=== PATIENT | female | born 1985 | race African-American/Black ===

== ENCOUNTER 2017-03-04 20:06 | Emergency (ER) | payer OTHER ==
[~2017-03-04] VITALS: Ht 165.1 cm; Wt 142.4 kg
[2017-03-04 20:12] VITALS: BP 136/100
--- NOTE | 2017-03-04 20:22 | NUR ---
PT BIBSELF, AMBULATORY TO ER BED 3 C/O LEFT EAR PAIN X 2 DAYS. PT DENIES TRAUMA. PT AOX4 RR EVEN AND UNLABORED. NO SOB NOTED. NAD NOTED. -NVD AT THIS TIME. PT WAITING FOR MD MENDEZ.
== END 2017-03-04 21:19 | disposition home or self-care (01) ==
LOC: ER 20:06
DX: H60.92 Unspecified otitis externa, left ear (principal); F41.9 Anxiety disorder, unspecified; F60.3 Borderline personality disorder
CPT/HCPCS: A4606; Z7610

== ENCOUNTER 2017-03-28 18:36 | Emergency (ER) | payer OTHER ==
[~2017-03-28] VITALS: Ht 165.1 cm; Wt 142.4 kg
[2017-03-28 18:43] VITALS: BP 177/108
== END 2017-03-28 19:44 | disposition home or self-care (01) ==
LOC: ER 18:37
DX: H92.01 Otalgia, right ear (principal); B99.8 Other infectious disease; F32.9 Major depressive disorder, single episode, unspecified; F41.9 Anxiety disorder, unspecified; F90.9 Attention-deficit hyperactivity disorder, unspecified type
CPT/HCPCS: 82962; 99283; A4606; Z7610

== ENCOUNTER 2017-05-23 14:28 | Emergency (ER) | payer SELFPAY ==
--- NOTE | 2017-05-23 14:40 | NUR ---
CALLED PT FOR TRIAGE, NO RESPONSE, PT PHYSICALLY NOT IN WAITING ROOM
--- NOTE | 2017-05-23 14:55 | NUR ---
CALLED PT FOR TRIAGE, NO RESPONSE, PT PHYSICALLY NOT IN WAITING ROOM
== END 2017-05-23 14:56 | disposition left against medical advice (07) ==
LOC: ER 14:32
DX: Z53.21 Procedure and treatment not carried out due to patient leaving prior to being seen by health care provider (principal)

== ENCOUNTER 2018-08-05 02:53 | Emergency (ER) | payer OTHER ==
[~2018-08-05] VITALS: Ht 165.1 cm; Wt 118.9 kg
[2018-08-05 02:57] VITALS: BP 152/94
== END 2018-08-05 03:30 | disposition home or self-care (01) ==
LOC: ER 02:53
DX: L03.113 Cellulitis of right upper limb (principal); F32.9 Major depressive disorder, single episode, unspecified; F41.9 Anxiety disorder, unspecified; F90.9 Attention-deficit hyperactivity disorder, unspecified type; F60.3 Borderline personality disorder; F17.200 Nicotine dependence, unspecified, uncomplicated; Z98.890 Other specified postprocedural states; Z90.89 Acquired absence of other organs
CPT/HCPCS: A4606; Z7610

== ENCOUNTER 2019-03-23 21:22 | Inpatient (IN) | payer OTHER ==
[~2019-03-23] VITALS: Ht 165.1 cm; Wt 98.9 kg
--- NOTE | 2019-03-23 21:55 | NUR ---
BIBFROM HOME BY MOTHER. PT IS SLEEPING AND DIFFICULT TO ARROUSE. BREATHING OBSERVED EVEN AND UNLABORED. C/O R BACK PAIN WHEN BREATHING SINCE TUESDAY 07/31 [place] PAIN. MOTHER REPORTS THAT SHE HAD HX OF HAVING FLUID IN HER LUNG. PT IS CURRENTLY ON DETOX TX FROM METH AND HEROIN. TO ER BED 10. MOTHER AT BEDSIDE. AWAITING MD FOR VANESSA
--- NOTE | 2019-03-23 22:44 | NUR ---
MARY (MOTHER) - [phone] CALL FOR ANY UPDATE OR INFORMATION
--- NOTE | 2019-03-23 22:51 | NUR ---
EKG AND XRAY AT BEDSIDE
[2019-03-23] MEDS ORDERED: IV NS 0.9% 1,000 ML BAG IV ONE (23:00)
[2019-03-23 23:52] LABS: BASOPHILS % (AUTO) 0.3 % (0.0-2.0); EOSINOPHILS % (AUTO) 0.1 % (0.0-6.0); HEMATOCRIT 32 % (33-45); LYMPHOCYTES # (AUTO) 1.3 /CMM (0.8-4.8); LYMPHOCYTES % (AUTO) 8.4 % (20.0-44.0); MEAN CORPUSCULAR HGB CONC 34 g/dl (31.0-36.0); MEAN CORPUSCULAR VOLUME 86 fL (82-100); MONOCYTES # (AUTO) 0.7 /CMM (0.1-1.30); MONOCYTES % (AUTO) 4.5 % (2.0-12.0); NEUTROPHILS # (AUTO) 13.5 /CMM (1.8-8.9); NEUTROPHILS % (AUTO) 86.7 % (43.0-81.0); PLATELET COUNT (AUTO) 229 /CMM (150-450); RED BLOOD CELL COUNT(AUTO) 3.76 MIL/uL (4.0-5.2); WHITE BLOOD COUNT (AUTO) 15.6 K/uL (4.3-11.0)
[2019-03-24 00:01] LABS: CALCIUM, SERUM 8.6 mg/dL (8.5-10.1); CARBON DIOXIDE 24 mmol/L (21-32); CHLORIDE 98 mmol/L (98-107); CREATININE 0.5 mg/dL (0.6-1.3); GLUCOSE 108 mg/dL (74-106); POTASSIUM 3.2 mmol/L (3.5-5.1); SODIUM SERUM 133 mmol/L (136-145); UREA NITROGEN, BLOOD 4 mg/dL (7-18)
[2019-03-24] MEDS ORDERED: MORPHINE SULFATE INJ 2 MG/ML DISP.SYRIN ONE ×2 (00:12→01:38)
[2019-03-24 00:14] LABS: B-TYPE NATRIURETIC PEPTIDE 623 PG/ML (0-125)
[2019-03-24 00:16] LABS: D-DIMER 1.57 mg/L(FEU (0.17-0.50)
[2019-03-24] MEDS ORDERED: MORPHINE SULFATE INJ 2 MG/ML DISP.SYRIN IV ONE ×2 (00:30→01:30)
--- NOTE | 2019-03-24 00:43 | NUR ---
MOTHER CALLED TO CHECK ON HER DAUGHTER.
[2019-03-24] MEDS ORDERED: FUROSEMIDE 40 MG/4 ML VIAL IV ONE (01:30)
[2019-03-24] MEDS ORDERED: FUROSEMIDE 40 MG/4 ML VIAL ONE (01:38)
--- NOTE | 2019-03-24 05:04 | NUR ---
AT BEDSIDE FOR US GUIDED IV.
[2019-03-24] MEDS ORDERED: POTASSIUM CHLORIDE 20 MEQ POWDER PACKET PO ONE (06:30)
[2019-03-24] MEDS ORDERED: POTASSIUM CHLORIDE 20 MEQ TAB.PRT.SR PO ONE (06:33)
[2019-03-24] MEDS ORDERED: IBUPROFEN 600 MG TABLET PO ONE ×2 (06:37→07:00)
--- NOTE | 2019-03-24 07:38 | NUR ---
Linsey nguyễn in ED - 03/24/19 at 0746 by TROY PT ASSESSED ON BED AA0X4, NOT IN RESPIRATORY DISTRESS, KEPT RESTED AND COMFORTABLE, WILL CONTINUE TO MONITOR. AWAITING PICC LINE NURSE.
--- NOTE | 2019-03-24 07:38 | NUR ---
PT ASSESSED ON BED AA0X1, APPEARS DRAWSY, NOT IN RESPIRATORY DISTRESS, KEPT RESTED AND COMFORTABLE, WILL CONTINUE TO MONITOR. AWAITING PICC LINE NURSE.
--- NOTE | 2019-03-24 07:50 | NUR ---
ER PHLEB AT BEDSIDE FOR REPEAT TROPONIN.
--- NOTE | 2019-03-24 08:39 | NUR ---
PT REFUSED BEDPAN AND OPTED TO GO TO RESTROOM.
--- NOTE | 2019-03-24 09:00 | NUR ---
CALLED HOUSE SUP TO FOLLOW UP PICC LINE NURSE. SAID ETA 1HOUR.
--- NOTE | 2019-03-24 09:58 | NUR ---
PICC LINE NURSE AT BEDSIDE.
--- NOTE | 2019-03-24 10:10 | NUR ---
MID LINE AT R UPPER ARM.
--- NOTE | 2019-03-24 10:40 | NUR ---
PT IS WHEELED TO CT SCAN VIA [facility].
[2019-03-24] MEDS ORDERED: IOHEXOL-350 100 ML VIAL IV ONE ×2 (10:43→10:44)
[2019-03-24] MEDS ORDERED: IV NS 0.9% 250 ML IV ONE (10:44)
[2019-03-24] MEDS ORDERED: CT SWABBABLE VALVE TRANS SET 1 EA INFUS.SET MC ONE (10:44)
--- NOTE | 2019-03-24 10:55 | NUR ---
PT IS BACK FROM THE CT SCAN.
[2019-03-24] MEDS ORDERED: ALPR0.5T PO (11:20)
[2019-03-24] MEDS ORDERED: LEVOFLOXACIN 750 MG /D5W 150ML PIGGYBACK IV ONE (11:30)
[2019-03-24] MEDS ORDERED: VANCOMYCIN 1 GM in IV D5W 250 ML IV ONE (11:30)
[2019-03-24] MEDS ORDERED: VANCOMYCIN 1 GM VIAL ONE (11:41)
[2019-03-24] MEDS ORDERED: LEVOFLOXACIN 750 MG /D5W 150ML 150 ML IV ONE (11:42)
--- NOTE | 2019-03-24 12:55 | NUR ---
MS 306-1
--- NOTE | 2019-03-24 13:10 | NUR ---
REPORT GIVEN TO SERENE ROCK FOR JOYCE.
--- NOTE | 2019-03-24 13:35 | NUR ---
CATALOGUE CLERK NOTES PT ARRIVED ON TO UNIT AT 1335 FROM ER. PT REFUSED SKIN CHECK. ALL PATIENT BELONGINGS CHECKED AND DOCUMENTED. PER ER PTS MOTHER TOOK ALL BELONGINGS EXCEPT FOR THE CLOTHING THE PATIENT IS WEARING HOME. PT HAS RIGHT FOOT IV, AND RIGHT UPPER ARM MIDLINE, BOTH INTACT. PT ORIENTED TO THE USE OF THE CALL LIGHT. SAFETY PRECAUTIONS IN PLACE, BED IN LOWEST LOCKED POSITION, X2 SIDE RAILS UP AND CALL LIGHT WITHIN REACH. WILL CONTINUE TO MONITOR.
[2019-03-24 14:00] VITALS: BP 121/79
[2019-03-24] MEDS ORDERED: MAG HYDROX/AL HYDROX/SIMETH 30 ML UDC PO PRN (14:30)
[2019-03-24] MEDS ORDERED: MAGNESIUM HYDROXIDE 30 ML UDC PO PRN (14:30)
[2019-03-24] MEDS ORDERED: ONDANSETRON HCL/PF 4 MG/2 ML VIAL IVP PRN (14:30)
[2019-03-24 14:49] LABS: BILIRUBIN,DIRECT 0.2 mg/dL (0.0-0.2); BILIRUBIN,TOTAL 0.5 mg/dL (0.2-1.0)
[2019-03-24] MEDS ORDERED: FEE PK DOSING 1 MIN EA MC ONE (15:02)
[2019-03-24] MEDS: IV NS 0.9% 1,000 ML IV PRN (15:14)
--- NOTE | 2019-03-24 15:30 | NUR ---
RN NOTES INFORMED MAGNETOMETER OPERATOR TRETIAK OF PATIENTS PAST USE OF "HEROIN AND METH". MAGNETOMETER OPERATOR ORDERED URINE TOXIC SCREEN AND PRN ATIVAN 1MG PO Q6H PRN. WILL CARRY OUT ORDERED.
[2019-03-24] MEDS: RIVAROXABAN 15 MG TABLET PO SCH (16:28)
[2019-03-24] MEDS: LORAZEPAM 1 MG TABLET PO PRN (16:28)
[2019-03-24] MEDS: CEFTRIAXONE 1 G in IV D5W 50 ML IV SCH ×2 (17:00→19:11)
[2019-03-24] MEDS: VANCOMYCIN 1.25 GM in IV D5W 500 ML IV SCH (17:13)
[2019-03-24] MEDS: ACETAMINOPHEN 325 MG TABLET PO PRN (17:59)
--- NOTE | 2019-03-24 19:10 | NUR ---
MS RN NOTES RECEIVED PT IN BED AWAKE AND ABLE TO MAKE NEEDS KNOWN. PT A/O X3. RESPIRATIONS EVEN AND UNLABORED WITH NO S/S OF ACUTE DISTRESS OR SOB NOTED. PT WITH RIGHT UPPER ARM MIDLINE PATENT AND INTACT RUNNING NS@75ML/HR. PT ALSO WITH RIGHT FOOT IV PATENT AND INTACT. SAFETY MEASURES IN PLACE WITH BED IN LOWEST LOCKED POSITION WITH SIDE RAILS UP X2. CALL LIGHT WITHIN REACH. WILL CONTINUE TO MONITOR.
--- NOTE | 2019-03-24 19:36 | NUR ---
RN CLOSING NOTES PT AWAKE AND ALERT. PT COMPLAINING OF PAIN, PER PATIENTS HISTORY ONLY ABLE TO GIVE PRN TYLENOL. PT HAS RIGHT UPPER ARM MIDLINE, AND RIGHT FOOT IV, BOTH INTACT AND PATENT. INFORMED NIGHT NURSE THAT URINE SAMPLE STILL NEEDED. SAFETY PRECAUTIONS IN PLACE, BED IN LOWEST LOCKED POSITION, X2 SIDE RAILS UP AND CALL LIGHT WITHIN REACH WILL ENDORSE TO SURG TECH NURSE FOR CONTINUITY OF CARE.
[2019-03-24 20:00] VITALS: BP 150/73
[2019-03-25] MEDS: ACETAMINOPHEN 325 MG TABLET PO PRN ×2 (01:26→09:36)
[2019-03-25] MEDS: VANCOMYCIN 1.25 GM in IV D5W 500 ML IV SCH ×2 (02:00→10:50)
[2019-03-25 06:50] LABS: BASOPHILS # (AUTO) 0.1 /CMM (0.0-0.2); BASOPHILS % (AUTO) 0.5 % (0.0-2.0); EOSINOPHILS % (AUTO) 0.2 % (0.0-6.0); HEMATOCRIT 33 % (33-45); HEMOGLOBIN 11.1 g/dL (11.5-14.8); LYMPHOCYTES # (AUTO) 1.6 /CMM (0.8-4.8); LYMPHOCYTES % (AUTO) 14.7 % (20.0-44.0); MEAN CORPUSCULAR HGB CONC 34 g/dl (31.0-36.0); MEAN CORPUSCULAR VOLUME 85 fL (82-100); MONOCYTES # (AUTO) 1.2 /CMM (0.1-1.30); MONOCYTES % (AUTO) 11.5 % (2.0-12.0); NEUTROPHILS # (AUTO) 7.9 /CMM (1.8-8.9); NEUTROPHILS % (AUTO) 73.1 % (43.0-81.0); PLATELET COUNT (AUTO) 236 /CMM (150-450); WHITE BLOOD COUNT (AUTO) 10.7 K/uL (4.3-11.0)
--- NOTE | 2019-03-25 06:54 | NUR ---
MS RN NOTES PT IN BED AWAKE AND ABLE TO MAKE NEEDS KNOWN. PT A/O X3. RESPIRATIONS EVEN AND UNLABORED WITH NO S/S OF ACUTE DISTRESS OR SOB NOTED THROUGHOUT SHIFT. PT WITH RIGHT UPPER ARM MIDLINE PATENT AND INTACT RUNNING NS@75ML/HR. PT ALSO WITH RIGHT FOOT IV PATENT AND INTACT. PT RECEIVED TYLENOL FOR GENERALIZED PAIN. SAFETY MEASURES IN PLACE WITH BED IN LOWEST LOCKED POSITION WITH SIDE RAILS UP X2. CALL LIGHT WITHIN REACH. WILL ENDORSE TO ONCOMING NURSE FOR JOYCE.
[2019-03-25 06:58] LABS: ALBUMIN 2.2 g/dL (3.4-5.0); BILIRUBIN,TOTAL 0.4 mg/dL (0.2-1.0); CALCIUM, SERUM 8.6 mg/dL (8.5-10.1); CREATININE 0.5 mg/dL (0.6-1.3); PHOSPHORUS 3.8 mg/dL (2.5-4.9); POTASSIUM 3.1 mmol/L (3.5-5.1); TOTAL PROTEIN, SERUM 6.9 g/dL (6.4-8.2)
--- NOTE | 2019-03-25 07:40 | NUR ---
ms rn received on bed, awake,alert,oriented x4,not in any form of distress,respirations even and ulabored,no sob noted, lungs are diminished,abdomen soft,positive bowel sounds,denies pain at this itme, will monitor patient's condition.
--- NOTE | 2019-03-25 07:44 | NUR ---
MS RN NOTES LAB CALLED FOR BLOOD CULTURES + FOR GRAM + COCCI WITH CLUSTERS. ENDORSED TO ONCOMING NURSE.
[2019-03-25 08:00] VITALS: BP 135/83
[2019-03-25] MEDS: LORAZEPAM 1 MG TABLET PO PRN ×2 (08:53→13:44)
[2019-03-25] MEDS: RIVAROXABAN 15 MG TABLET PO SCH ×2 (08:54→17:19)
--- NOTE | 2019-03-25 09:00 | NUR ---
ms rodrigez breakfast served,due meds given,tolerated well.
[2019-03-25] MEDS ORDERED: POTASSIUM CHLORIDE 20 MEQ TAB.PRT.SR PO ONE (10:00)
[2019-03-25] MEDS: HYDROMORPHONE 1 MG/1 ML DISP.SYRIN IV PRN ×2 (10:51→17:10)
[2019-03-25] MEDS ORDERED: LEVOFLOXACIN 750 MG /D5W 150ML 750 MG in PREMIX 1 EA IV SCH (11:00)
--- NOTE | 2019-03-25 11:00 | NUR ---
ms elia was seen by haider vazquez/ orders made and carried out.
[2019-03-25 16:00] VITALS: BP 132/82
[2019-03-25] MEDS: IV NS 0.9% 1,000 ML IV PRN (16:04)
[2019-03-25] MEDS: VANCOMYCIN 1.5 GM in IV D5W 500 ML IV SCH ×2 (16:04→23:26)
--- NOTE | 2019-03-25 16:53 | NUR ---
ms rn on bed,no distress noted.
[2019-03-25] MEDS: LACTOBACILLUS RHAMNOSUS GG 1 EACH CAP.SPRINK PO SCH (17:10)
[2019-03-25] MEDS: CEFTRIAXONE 1 G in IV D5W 50 ML IV SCH (17:10)
[2019-03-25] MEDS: KETOROLAC TROMETHAMINE INJ 30 MG/ML VIAL IV PRN (19:55)
[2019-03-25 20:00] VITALS: BP 125/77
--- NOTE | 2019-03-25 20:00 | NUR ---
MS RN NOTES PATIENT ASLEEP IN BED WITH NO DISTRESS NOTED. CALL LIGHT WITHIN REACH. PATIENT WITH C/O PLEURITIC CHEST PAIN. PRN TORADOL 15MG IV GIVEN AND TOLERATED WELL. WILL CONTINUE TO MONITOR FOR EFFECTIVENESS. PERIPHERAL LINE INTACT AND PATENT. BED IN LOW LOCK SETTING. ROOM FREE OF CLUTTER AND BELONGINGS KEPT NEAR BEDSIDE. WILL CONTINUE TO MONITOR.
[2019-03-26] MEDS: HYDROMORPHONE 1 MG/1 ML DISP.SYRIN IV PRN ×3 (01:55→16:51)
[2019-03-26] MEDS: KETOROLAC TROMETHAMINE INJ 30 MG/ML VIAL IV PRN ×3 (04:35→22:02)
[2019-03-26] MEDS: LORAZEPAM 1 MG TABLET PO PRN ×3 (05:13→18:41)
--- NOTE | 2019-03-26 05:55 | NUR ---
MS RN NOTES PATIENT ASLEEP IN BED WITH NO DISTRESS NOTED. CALL LIGHT WITHIN REACH. AT BEDSIDE. ALL DUE MEDS GIVEN ORDERED WITH NO ASE. NO FURTHER C/O PAIN OR DISCOMFORT. PERIPHERAL LINE INTACT AND PATENT. BED IN LOW LOCK SETTING. ROOM FREE OF CLUTTER AND BELONGINGS KEPT NEAR BEDSIDE. WILL ENDORSE TO ONCOMING SHIFT.
[2019-03-26 06:44] LABS: BASOPHILS % (AUTO) 0.3 % (0.0-2.0); HEMATOCRIT 33 % (33-45); HEMOGLOBIN 10.8 g/dL (11.5-14.8); LYMPHOCYTES # (AUTO) 2.1 /CMM (0.8-4.8); LYMPHOCYTES % (AUTO) 25.3 % (20.0-44.0); MEAN CORPUSCULAR HGB CONC 33 g/dl (31.0-36.0); MEAN CORPUSCULAR VOLUME 86 fL (82-100); MONOCYTES # (AUTO) 0.8 /CMM (0.1-1.30); MONOCYTES % (AUTO) 9.1 % (2.0-12.0); NEUTROPHILS # (AUTO) 5.4 /CMM (1.8-8.9); NEUTROPHILS % (AUTO) 64.3 % (43.0-81.0); PLATELET COUNT (AUTO) 298 /CMM (150-450); RED BLOOD CELL COUNT(AUTO) 3.79 MIL/uL (4.0-5.2); WHITE BLOOD COUNT (AUTO) 8.4 K/uL (4.3-11.0)
[2019-03-26 07:13] LABS: CALCIUM, SERUM 8.1 mg/dL (8.5-10.1); CREATININE 0.5 mg/dL (0.6-1.3); MAGNESIUM 1.9 mg/dL (1.8-2.4); PHOSPHORUS 4.4 mg/dL (2.5-4.9); POTASSIUM 3.3 mmol/L (3.5-5.1)
--- NOTE | 2019-03-26 07:59 | NUR ---
MS RN OPENING NOTES RECEIVED PT LAYING IN BED WITH HOB ELEVATED. PT IS A/OX4, AFEBRILE. RESPIRATIONS ARE EVEN AND UNLABORED, NOT IN ANY ACUTE DISTRESS NOTED. PT DENIES ANY PAIN AT THIS TIME, NO C/O SOB, N/V. JUANITA MIDLINE INTACT, NO INFILTRATION NOTED, DRESSING KEPT CLEAN AND DRY. IV FLUIDS RUNNING AT 75ML/HR, TOLERATING WELL. SAFETY MEASURES ARE IN PLACE. AT BEDSIDE. INSTRUCTED PT TO USE CALL LIGHT WHEN ASSISTANCE IS NEEDED, CALL LIGHT IS LEFT WITHIN REACH. WILL MONITOR THROUGHOUT SHIFT FOR CONTINUITY OF CARE.
[2019-03-26 08:00] VITALS: BP 132/78
[2019-03-26] MEDS: VANCOMYCIN 1.5 GM in IV D5W 500 ML IV SCH ×2 (08:18→15:01)
[2019-03-26] MEDS: LACTOBACILLUS RHAMNOSUS GG 1 EACH CAP.SPRINK PO SCH ×2 (08:18→16:50)
[2019-03-26] MEDS: RIVAROXABAN 15 MG TABLET PO SCH (08:23)
[2019-03-26] MEDS ORDERED: POTASSIUM CHLORIDE 20 MEQ TAB.PRT.SR PO SCH (10:30)
--- NOTE | 2019-03-26 11:00 | NUR ---
MS RN NOTES-- PT SEEN AND EXAMINED BY YANDY BAUTISTA.
[2019-03-26 16:00] VITALS: BP_SYST 113; BP_SYST 132; BP_DIAS 68; BP_DIAS 78
[2019-03-26 17:30] LABS: APPEARANCE,URINE CLEAR (CLEAR); BILIRUBIN,URINE NEGATIVE (NEGATIVE); BLOOD, URINE NEGATIVE Ery/uL (NEGATIVE); COLOR,URINE YELLOW (YELLOW); KETONES,URINE NEGATIVE (NEGATIVE); LEUKOCYTE ESTERASE ,URINE NEGATIVE (NEGATIVE); NITRITE, URINE NEGATIVE (NEGATIVE); PH,URINE 6.5 (5.0-8.0); PROTEIN,URINE NEGATIVE (NEGATIVE); UGLUCOSE NEGATIVE (NEGATIVE); UROBILINOGEN,URINE 0.2 EU/dL (0.2)
[2019-03-26] MEDS: IV NS 0.9% 1,000 ML IV PRN (18:37)
--- NOTE | 2019-03-26 19:25 | NUR ---
MS/RN NOTES RECEIVED PT. LYING IN BED. PT. IS AWAKE, ALERT AND ORIENTED X4. BREATHING EVEN AND UNLABORED ON ROOM AIR. NO SOB OR RESPIRATORY DISTRESS NOTED AT THIS TIME. PT. COMPLAINING OF PAIN 7/10 IN HER RIGHT SIDE. WILL ADMINISTER TO PT. PAIN MEDICATION ORDERED. PT. WITH RIGHT UPPER ARM MIDLINE PRESENT, PATENT AND INTACT ADMINISTERING TO PT. NS @ 75 ML/HR. PT. WITH FAMILY MEMBER PRESENT AT BEDSIDE. BED LOCKED AND IN LOWEST POSITION, SIDE RAILS UP X2, CALL LIGHT WITHIN REACH, WILL CONTINUE TO MONITOR.
[2019-03-26 20:00] VITALS: BP 101/68
[2019-03-27] MEDS: VANCOMYCIN 1.5 GM in IV D5W 500 ML IV SCH ×3 (00:16→16:12)
[2019-03-27] MEDS: HYDROMORPHONE 1 MG/1 ML DISP.SYRIN IV PRN ×4 (00:17→18:15)
--- NOTE | 2019-03-27 06:50 | NUR ---
MS/RN NOTES PT. IS LYING IN BED RESTING, BREATHING EVEN AND UNLABORED ON ROOM AIR. NO SOB, RESPIRATORY DISTRESS OR COMPLAINTS OF PAIN NOTED AT THIS TIME. PT. WITH RIGHT UPPER ARM MIDLINE PRESENT, PATENT AND INTACT ADMINISTERING TO PT. NS @ 75 ML/HR. PT. WITH FAMILY MEMBER PRESENT AT BEDSIDE. ALL PT. NEEDS MET. BED LOCKED AND IN LOWEST POSITION, SIDE RAILS UP X2, CALL LIGHT WITHIN REACH, WILL ENDORSE TO DAYSHIFT NURSE FOR CONTINUITY OF CARE.
--- NOTE | 2019-03-27 07:55 | NUR ---
M/S RN NOTES PATIENT LYING IN BED RESTING, NO RESPIRATORY DISTRESS NOTED, NO C/O PAIN AT THIS THIS. PATIENT'S NEEDS ATTENDED. SKIN WARM TO TOUCH. IVF OF NS INFUSING AT 75ML/HR ON THE JUANITA MIDLINE, INTACT, NO REDNESS, NO INFILTRATION. BED ON LOWEST LOCKED POSITION, CALL LIGHT WITHIN REACH. WILL CONTINUE TO MONITOR.
[2019-03-27 08:00] VITALS: BP 147/80
[2019-03-27] MEDS: LACTOBACILLUS RHAMNOSUS GG 1 EACH CAP.SPRINK PO SCH ×2 (09:19→17:28)
[2019-03-27] MEDS: KETOROLAC TROMETHAMINE INJ 30 MG/ML VIAL IV PRN (10:14)
[2019-03-27 11:46] LABS: BASOPHILS # (AUTO) 0.1 /CMM (0.0-0.2); BASOPHILS % (AUTO) 0.4 % (0.0-2.0); EOSINOPHILS % (AUTO) 1.1 % (0.0-6.0); HEMATOCRIT 33 % (33-45); HEMOGLOBIN 10.7 g/dL (11.5-14.8); LYMPHOCYTES # (AUTO) 2.3 /CMM (0.8-4.8); LYMPHOCYTES % (AUTO) 19.1 % (20.0-44.0); MEAN CORPUSCULAR HGB CONC 33 g/dl (31.0-36.0); MEAN CORPUSCULAR VOLUME 86 fL (82-100); MONOCYTES # (AUTO) 0.5 /CMM (0.1-1.30); MONOCYTES % (AUTO) 4.5 % (2.0-12.0); NEUTROPHILS # (AUTO) 8.9 /CMM (1.8-8.9); NEUTROPHILS % (AUTO) 74.9 % (43.0-81.0); PLATELET COUNT (AUTO) 345 /CMM (150-450); RED BLOOD CELL COUNT(AUTO) 3.79 MIL/uL (4.0-5.2); WHITE BLOOD COUNT (AUTO) 11.9 K/uL (4.3-11.0)
[2019-03-27 11:57] LABS: CALCIUM, SERUM 8.2 mg/dL (8.5-10.1); CREATININE 0.4 mg/dL (0.6-1.3); MAGNESIUM 1.8 mg/dL (1.8-2.4); PHOSPHORUS 2.9 mg/dL (2.5-4.9); POTASSIUM 3.5 mmol/L (3.5-5.1)
[2019-03-27] MEDS: LORAZEPAM 1 MG TABLET PO PRN ×2 (12:05→22:42)
[2019-03-27 16:00] VITALS: BP 125/71
[2019-03-27] MEDS: IV NS 0.9% 1,000 ML IV PRN (18:57)
--- NOTE | 2019-03-27 19:00 | NUR ---
M/S RN NOTES PATIENT RESTING IN BED, NO RESPIRATORY DISTRESS NOTED, NO C/O PAIN AT THIS TIME. SKIN WARM TO TOUCH. IV ACCESS SITE INTACT AND PATENT, NS INFUSING AT 75ML/HR. PATIENT'S NEEDS ATTENDED. BED ON LOWEST LOCKED POSITION, CALL LIGHT WITHIN REACH. AT BEDSIDE. WILL ENDORSE TO ONCOMING NURSE.
--- NOTE | 2019-03-27 19:00 | NUR ---
M/S RN NOTES JALIL FROM LAB CAME TO DRAW BLOOD FOR BLOOD CULTURE PER MD ORDER, PATIENT REFUSED. SPOKE TO YANDY NASH AND MADE AWARE THAT PATIENT REFUSED. PER DERRICK BOAT LEVERMAN BLOOD CULTURE CAN BE DONE TOMORROW AM.
--- NOTE | 2019-03-27 19:20 | NUR ---
CHANGE OF SHIFT REPORT Patient in bed, sleeping, arouses easily. Refused blood test for blood culture per report. IVF infusing, breathing even and non labored, tolerating RA. Maintained safety. Will cont to monitor.
--- NOTE | 2019-03-27 20:00 | NUR ---
VS REFUSED Per SALES SUPPORT TECHNICIAN patient refused VS, education provided, declined teaching.
[2019-03-27] MEDS: CEFAZOLIN 1 GM in IV NS 0.9% 50 ML IV SCH (21:15)
--- NOTE | 2019-03-27 22:31 | NUR ---
AGITATED 2209: Patient awakens, reports body ache pain. Last pain medication Dilaudid 0.4 mg IV was given at 1814, next due 14. Patient stated she have Toradol for breakthrough pain and she wants it now. Reviewed medication with patient, was received Toradol 15 mg IV x 5 doses total. Education provided, patient became upset and angry, insisting to have Toradol now. Patient reports vaginal itch, stated she spoke with ID doctor earlier today and told ID, vaginal itching was from the Antibiotic Cefazolin. Patient stated she wants vaginal cream now. Cefazolin was given 2114 after patient spoke with ID late this afternoon. Education provided on Antibiotic indication and possible side effect, include good hygiene measures, patient declined teaching. Request another Nurse. Notified MD. 2241: Spoke with Dr. Mak. Dose and frequency of Dilaudid will remains the same, no new orders for pain medication since patient received total 5 doses of Toradol. Vaginal cream for vaginal itch symptoms and will assess patient for vaginal discharge. Patient declined discussion, and stated to take care of it tomorrow, per patient she wants Pills for vaginal itching not cream. Irritated behavior at this time, patient stated she wants her Ativan. PRN Ativan given for anxiety.
[2019-03-28] MEDS: HYDROMORPHONE 1 MG/1 ML DISP.SYRIN IV PRN ×4 (00:02→18:38)
[2019-03-28] MEDS: CEFAZOLIN 1 GM in IV NS 0.9% 50 ML IV SCH ×3 (05:20→20:13)
--- NOTE | 2019-03-28 05:33 | NUR ---
REFUSED BLOOD TEST Patient refusing blood draw, stated do it at 7:00 am. cardiovascular technician made aware to come back and draw blood test at 7:00 am. Reports upper and lower back pain, given PRN Dilaudid. Will reassess.
--- NOTE | 2019-03-28 06:25 | NUR ---
END OF SHIFT NOTES Patient in bed, calm at this time. IVF infusing maintained at 75 ml/hr. On IV antibiotic as scheduled. Anxiety, irritable behavior managed with PRN Ativan, able to sleep well. Given PRN Dilaudid for back/generalized body pain with relief. Ambulated independently. event technician. will draw blood test at 0700 am per patient request. Will endorse to oncoming RN.
--- NOTE | 2019-03-28 07:15 | NUR ---
M/S RN NOTES PATIENT AWAKE IN BED, NO RESPIRATORY DISTRESS NOTED, NO C/O PAIN AT THIS TIME. SKIN WARM TO TOUCH. IVF OF NS INFUSING AT 75ML/HR ON JUANITA MIDLINE, INTACT AND PATENT. PATIENT'S NEEDS ATTENDED. BED ON LOWEST LOCKED POSITION. WILL CONTINUE TO MONITOR.
[2019-03-28 08:00] VITALS: BP 120/73
[2019-03-28] MEDS: LACTOBACILLUS RHAMNOSUS GG 1 EACH CAP.SPRINK PO SCH ×2 (09:31→17:34)
--- NOTE | 2019-03-28 10:30 | NUR ---
M/S RN NOTES PATIENT COMPLAINING OF VAGINAL ITCH AND DRYNESS, NOTIFIED YANDY BAUTISTA. ORDERED DIFLUCAN 150MG PO ONCE PER PATROL COMMANDER. ORDERED CARRIED OUT.
--- NOTE | 2019-03-28 10:58 | NUR ---
M/S RN NOTES PATIENT AGREED TO HAVE BLOOD DRAWN, LAB CAME TO DRAW BLOOD FOR BLOOD CULTURE.
[2019-03-28] MEDS ORDERED: FLUCONAZOLE (100 MG) 100 MG TABLET PO ONE (11:00)
[2019-03-28 11:39] LABS: BASOPHILS # (AUTO) 0.1 /CMM (0.0-0.2); BASOPHILS % (AUTO) 0.5 % (0.0-2.0); EOSINOPHILS % (AUTO) 0.8 % (0.0-6.0); HEMATOCRIT 33 % (33-45); HEMOGLOBIN 10.9 g/dL (11.5-14.8); LYMPHOCYTES # (AUTO) 2.3 /CMM (0.8-4.8); LYMPHOCYTES % (AUTO) 16.4 % (20.0-44.0); MEAN CORPUSCULAR HGB CONC 33 g/dl (31.0-36.0); MEAN CORPUSCULAR VOLUME 86 fL (82-100); MONOCYTES # (AUTO) 0.5 /CMM (0.1-1.30); MONOCYTES % (AUTO) 3.9 % (2.0-12.0); NEUTROPHILS # (AUTO) 11.1 /CMM (1.8-8.9); NEUTROPHILS % (AUTO) 78.4 % (43.0-81.0); PLATELET COUNT (AUTO) 375 /CMM (150-450); RED BLOOD CELL COUNT(AUTO) 3.87 MIL/uL (4.0-5.2); WHITE BLOOD COUNT (AUTO) 14.1 K/uL (4.3-11.0)
[2019-03-28 11:53] LABS: CALCIUM, SERUM 8.3 mg/dL (8.5-10.1); CREATININE 0.5 mg/dL (0.6-1.3); MAGNESIUM 1.9 mg/dL (1.8-2.4); PHOSPHORUS 3.3 mg/dL (2.5-4.9); POTASSIUM 3.2 mmol/L (3.5-5.1)
[2019-03-28] MEDS: LORAZEPAM 1 MG TABLET PO PRN (14:28)
[2019-03-28 16:00] VITALS: BP 133/97
--- NOTE | 2019-03-28 19:00 | NUR ---
M/S RN NOTES PATIENT AWAKE IN NO RESPIRATORY DISTRESS NOTED, PAIN TOLERABLE AT THIS TIME, GIVEN DILAUDID ORDERED. SKIN WARM TO TOUCH. JUANITA MIDLINE INTACT AND PATENT. PATIENT'S NEEDS ATTENDED. BED ON LOWEST LOCKED POSITION, CALL LIGHT WITHIN REACH. WILL ENDORSE TO ONCOMING NURSE.
--- NOTE | 2019-03-28 19:25 | NUR ---
MS RN OPENING NOTES: RECEIVED PT ON ROOM AIR AND IS TOLERATING WELL. PT HAS JUANITA MIDLINE AND IS PATENT AND INTACT. CURRENTLY H/L. SIGNIFICANT OTHER AT BEDSIDE. NO SOB NOTED. NO S/S OF DISTRESS. BED KEPT IN LOW, LOCKED POSITION, AND SIDE RAILS X 2UP. WILL CONTINUE TO MONITOR PT.
[2019-03-28 20:16] VITALS: BP 134/81
--- NOTE | 2019-03-28 20:19 | NUR ---
MS RN NOTES: PT REQUESTS FOR HER SUBWAY TO BE PLACED IN REFRIGERATOR AND WAS PLACED IN KITCHEN REFRIGERATOR.
--- NOTE | 2019-03-28 20:34 | NUR ---
MS RN CLOSING NOTES: ENDORSED TO RUSSELL CAST FOR JOYCE. PT ASLEEP WITH SIGNIFICANT AT BEDSIDE. ANCEF RUNNING AT THIS TIME. PT NI STABLE CONDITIONED.
--- NOTE | 2019-03-28 22:00 | NUR ---
checked the patient, asleep. with family member at the bedside.
[2019-03-29] MEDS: HYDROMORPHONE 1 MG/1 ML DISP.SYRIN IV PRN ×4 (00:33→18:46)
[2019-03-29] MEDS: CEFAZOLIN 1 GM in IV NS 0.9% 50 ML IV SCH (05:42)
[2019-03-29] MEDS: LORAZEPAM 1 MG TABLET PO PRN ×3 (05:51→23:48)
--- NOTE | 2019-03-29 06:00 | NUR ---
MS RN CLOSING NOTES PATIENT IS ASLEEP AT THIS TIME. NO SOB. BEEN MEDICATED WITH DILAUDID 0.4MG IVP. PATIENT REFUSED THE LAB DRAW THIS AM, STATES SHE WANTS IT LATER.
--- NOTE | 2019-03-29 07:46 | NUR ---
MS/RN OPENING NOTE PATIENT IN BED IN STABLE CONDITION. A/O X 4. NO SIGNS OF ACUTE DISTRESS. NO COMPLAIN OF PAIN OR DISCOMFORT. ALL NEEDS ATTENDED TO. CALL LIGHT WITHIN REACH. WILL CONTINUE TO MONITOR TO ENSURE SAFETY.
[2019-03-29] MEDS: LACTOBACILLUS RHAMNOSUS GG 1 EACH CAP.SPRINK PO SCH ×2 (08:29→16:45)
--- NOTE | 2019-03-29 11:43 | NUR ---
MS/RN SPOKE WITH YANDY BAUTISTA AND VERIFIED IF PATIENT NEEDS A PICC LINE INSERTION SINCE PICC LINE NURSE IS AVAILABLE PER YANDY BAUTISTA ORDERS OKAY FOR PICC LINE INSERTION. PATIENT AWARE.
[2019-03-29] MEDS: CEFAZOLIN 2 GM in IV NS 0.9% 50 ML IV SCH ×2 (13:00→21:04)
--- NOTE | 2019-03-29 14:00 | NUR ---
MS/RN PICC LINE PLACEMENT DONE TO RIGHT UA TOLERATED WELL.
[2019-03-29] MEDS ORDERED: CEFA2PLA10 IV (14:01)
[2019-03-29 16:00] VITALS: BP 119/72
--- NOTE | 2019-03-29 18:29 | NUR ---
MS/RN CLOSING NOTE PATIENT IN BED IN STABLE CONDITION. A/O X 4. NO SIGNS OF ACUTE DISTRESS.NO COMPLAIN OF PAIN OR DISCOMFORT. ALL NEEDS ATTENDED TO. CALL LIGHT WITHIN REACH. WILL ENDORSE TO NEXT SHIFT FOR CONTINUITY OF CARE.
--- NOTE | 2019-03-29 19:41 | NUR ---
MS CAST OPENING NOTES: PT REFUSING TO HAVE VITALS AND DOES NOT WANT TO BE BOTHERED AT THIS TIME. WILL CHECK AT ANOTHER TIME. Addendum: 03/30/19 at 0550 by JACQUI BIGGS RN PT A/OX4. PT WANTS TO SLEEP AND REST AT THIS TIME. SIGNIFICANT OTHER AT BEDSIDE. PT HAS JUANITA PICC LINE AND IS PATENT AND INTACT. CURRENTLY H/L. BED KEPT IN LOW, LOCKED POSITION, AND SIDE RAILS X 2UP. WILL CONTINUE TO MONITOR PT AND COME BACK AT A LATER TIME TO ASSESS VITALS.
--- NOTE | 2019-03-29 23:25 | NUR ---
MS RN NOTES: PT REFUSING BLOOD DRAW.
[2019-03-29 23:47] VITALS: BP 115/66
--- NOTE | 2019-03-29 23:51 | NUR ---
MS RN NOTES: PT WOKE UP FEELING VERY ANXIOUS. PT WAS ADMINISTERED ATIVAN 1MG PO. WILL CONTINUE TO MONITOR.
[2019-03-30] MEDS: HYDROMORPHONE 1 MG/1 ML DISP.SYRIN IV PRN ×3 (01:20→14:04)
--- NOTE | 2019-03-30 01:23 | NUR ---
MS RN NOTES: PT CRYING AND COMPLAINING OF GEN PAIN AND HER RIGHT LUNG AREA. PT WAS ADMINISTERED DILAUDID 0.4MG IV. WILL CONTINUE TO MONITOR.
[2019-03-30] MEDS: CEFAZOLIN 2 GM in IV NS 0.9% 50 ML IV SCH ×2 (05:06→12:38)
--- NOTE | 2019-03-30 06:37 | NUR ---
MS RN CLOSING NOTES: ALL NEEDS WERE ATTENDED AND ANTICIPATED FOR. PT ASLEEP AT THIS TIME AND RESTING COMFORTABLY. NO SOB NOTED. NO S/S OF DISTRESS. FAMILY MEMBER AT BEDSIDE. JUANITA PICC LINE REMAINS IN PLACE AND IS PATENT AND INTACT. CURRENTLY H/L. BED KEPT IN LOW, LOCKED POSITION, AND SIDE RAILS X 2UP. WILL ENDORSE TO AM NURSE FOR JOYCE.
--- NOTE | 2019-03-30 06:57 | NUR ---
MS RN NOTES: PT WOULD LIKE ADMINISTRATION VICE PRESIDENT TO COME AT ANOTHER TIME. WOULD LIKE TO SLEEP AND REST SOME MORE.
[2019-03-30] MEDS: LACTOBACILLUS RHAMNOSUS GG 1 EACH CAP.SPRINK PO SCH (07:49)
--- NOTE | 2019-03-30 07:49 | NUR ---
rn notes RECEIVED PATIENT IN THE BED A/O X 4. PATIENT HAS A NO ACUTE RESPIRATORY DISTRESS,BUT WAS COMPLAINING OF THROBBING PAIN ON UPPER RIGHT BACK 8/10 PER PAIN SCALE. ADMINISTERED DILAUDID 0.4 MG/ML IV PUSH PER PATIENT REQUEST. V/S TAKEN BP 116/70, P-110. PATIENT HAS A PICC LINE ON RIGHT UPPER ARM INTACT. PATIENT AMBULATORY SELF CARE. NEXT TO THE BED. SAFETY PRECAUTION MAINTAINED ALL THE TIME.
[2019-03-30 08:00] VITALS: BP 116/70
--- NOTE | 2019-03-30 09:17 | NUR ---
RN NOTES' MEDICATION WERE ADMINISTERED FOR PAIN EFFECTIVE. PATIENT STABLE, TALKING WITH THE PHONE. CONTINUED MONITORING.
--- NOTE | 2019-03-30 12:20 | NUR ---
RN NOTES PATIENT STABLE EATING LUNCH. NO COMPLAINING OF PAIN. PATIENT PLANING TO TAKE A SHOWER. NEXT TO THE BED. CALL LIGHT WITHIN TO REACH, SAFETY PRECAUTION MAINTAINED ALL THE TIME.
[2019-03-30] MEDS: LORAZEPAM 1 MG TABLET PO PRN (12:46)
--- NOTE | 2019-03-30 12:46 | NUR ---
RN NOTES ADMINISTERED ATIVAN1 MG PO PRN FOR ANXIETY PER PATIENT REQUEST, V/S TAKEN STABLE, CONTINUED MONITORING.
[2019-03-30 12:47] LABS: CALCIUM, SERUM 8.4 mg/dL (8.5-10.1); CREATININE 0.6 mg/dL (0.6-1.3)
--- NOTE | 2019-03-30 14:04 | NUR ---
RN NOTES ADMINISTERED DILAUDID 0.4 MG /ML IV PUSH FOR RIGHT UPPER BACK PAIN, V/S TAKEN BP 122/72, P-11. PATIENT WILL D/C HOME WITH HOME HEALTH. SEEN LEAH KEBEDE. CONTINUED MONITORING.
--- NOTE | 2019-03-30 15:30 | NUR ---
PROCUREMENT COST COORDINATOR NOTES PATIENT STABLE GOING HOME WITH HOME HEALTH, HAS A PICC LINE TO CONTINUED IV [id number] FOR 42 DAYS. PATIENT REFUSED PAIN, V/S STABLE, MED COMPLIANT, NO ACUTE RESPIRATORY DISTRESS. MED RECONCILIATION AND DISCHARGE ORDER REVIEWED AND EXPLAINED TO PATIENT AND . PATIENT VERBALIZED UNDERSTANDING. BELONGING WITH THE PATIENT . PATIENT SIGN PAPERWORK. PRESCRIPTION HANDED TO THE PATIENT.ESCORTED PATIENT TO THE [facility] FOR SAFETY. PATIENT PROPAGATOR BY MOTHER NAME RIMA PHONE # [phone].
[2019-04-15] MEDS ORDERED: RIVAROXABAN 10 MG TABLET PO SCH (17:00)
== END 2019-03-30 15:15 | disposition home or self-care (01) | DRG 720 ==
LOC: ER 21:30 → MED 03-24 13:27
PROVIDERS: ADMIT Nurse Practitioner Acute Care; ATTEND Nurse Practitioner Acute Care
PROC: B546ZZA Ultrasonography of Right Subclavian Vein, Guidance (ICD-10-PCS; principal; 2019-03-27)
PROC: 05H533Z Insertion of Infusion Device into Right Subclavian Vein, Percutaneous Approach (ICD-10-PCS; principal; 2019-03-27)
DX: A41.9 Sepsis, unspecified organism (principal); I26.90 Septic pulmonary embolism without acute cor pulmonale; I76 Septic arterial embolism; I33.0 Acute and subacute infective endocarditis; G92 Toxic encephalopathy; E87.1 Hypo-osmolality and hyponatremia; B37.9 Candidiasis, unspecified; I50.9 Heart failure, unspecified; D63.8 Anemia in other chronic diseases classified elsewhere; F41.0 Panic disorder [episodic paroxysmal anxiety]; F19.10 Other psychoactive substance abuse, uncomplicated; Z98.890 Other specified postprocedural states; F90.9 Attention-deficit hyperactivity disorder, unspecified type; F32.9 Major depressive disorder, single episode, unspecified; F41.9 Anxiety disorder, unspecified; F60.3 Borderline personality disorder; E87.6 Hypokalemia; R73.9 Hyperglycemia, unspecified; Z87.891 Personal history of nicotine dependence; Z86.718 Personal history of other venous thrombosis and embolism; E66.9 Obesity, unspecified; Z68.36 Body mass index [BMI] 36.0-36.9, adult
CPT/HCPCS: 36415; 71045-TC; 80048-TC; 80053-TC; 80061-TC; 80202-TC; 80305; 81000-TC; 82247-TC; 82248-TC; 83605-TC; 83735-TC; 83880; 84100-TC; 84484-TC; 84703-TC; 85025-TC; 85378-TC; 85730-TC; 86706; 86803; 87040-TC; 87081-TC; 87340; 87491; 87591; 87806; 93307-TC; 93970-TC; A4216; C1751; G0378; G0480; J0690; J0696; J1170; J1885; J1940; J1956; J2270; J3370; J3490; J7030; J7050; J7060; Q9967

== ENCOUNTER 2019-04-22 07:17 | Emergency (ER) | payer OTHER ==
[~2019-04-22] VITALS: Ht 165.1 cm; Wt 104.3 kg
[~2019-04-22 07:17] MED LIST: ALPR0.5T PO; CEFA2PLA10 IV
--- NOTE | 2019-04-22 07:30 | NUR ---
RUE PAIN AND SWELLING X YESTERDAY, ON IV ANTIBIOTICS, PICC LINE NOTED. PATIENT A/OX4, C/O PAIN ON RUE. NEEDS ATTENDED, ATTACHED TO THE MONITOR. WAITING FOR MD MENDEZ.
--- NOTE | 2019-04-22 07:45 | NUR ---
DR. BRUCE REMOVED PICC LINE AND CUT OFF THE TIP TO SEND TO LAB FOR CULTURE.
[2019-04-22] MEDS ORDERED: HYDROMORPHONE 1 MG/1 ML DISP.SYRIN ONE (07:57)
[2019-04-22] MEDS ORDERED: HYDROMORPHONE 1 MG/1 ML DISP.SYRIN IM ONE (08:00)
--- NOTE | 2019-04-22 08:00 | NUR ---
NURSING SHORE MAN MADE AWARE OF PICC LINE INSERTION ORDER.
--- NOTE | 2019-04-22 08:05 | NUR ---
CATHETER TIP SENT TO LAB. EGG BUYER AT BEDSIDE.
--- NOTE | 2019-04-22 08:05 | NUR ---
Linsey nguyễn in [facility] - 04/22/19 at 0805 by HARRY cath tip sent to lab.
--- NOTE | 2019-04-22 09:00 | NUR ---
EVENTS INTERN AT BEDSIDE.
--- NOTE | 2019-04-22 11:23 | NUR ---
PICC LINE NURSE AT BEDSIDE.
[2019-04-22 12:24] LABS: CALCIUM, SERUM 7.5 mg/dL (8.5-10.1); CREATININE 0.3 mg/dL (0.6-1.3); POTASSIUM 3.8 mmol/L (3.5-5.1)
[2019-04-22] MEDS ORDERED: CEFAZOLIN 2 GM in IV D5W 100 ML IV ONE (12:30)
--- NOTE | 2019-04-22 12:30 | NUR ---
PICC LINE INSERTED ON KENNETH.
[2019-04-22 12:48] LABS: BASOPHILS % (AUTO) 0.7 % (0.0-2.0); EOSINOPHILS % (AUTO) 1.6 % (0.0-6.0); HEMATOCRIT 34 % (33-45); HEMOGLOBIN 11.2 g/dL (11.5-14.8); LYMPHOCYTES # (AUTO) 2.5 /CMM (0.8-4.8); LYMPHOCYTES % (AUTO) 37.5 % (20.0-44.0); MEAN CORPUSCULAR HGB CONC 33 g/dl (31.0-36.0); MEAN CORPUSCULAR VOLUME 89 fL (82-100); MONOCYTES # (AUTO) 0.5 /CMM (0.1-1.30); MONOCYTES % (AUTO) 6.9 % (2.0-12.0); NEUTROPHILS # (AUTO) 3.6 /CMM (1.8-8.9); NEUTROPHILS % (AUTO) 53.3 % (43.0-81.0); PLATELET COUNT (AUTO) 212 /CMM (150-450); RED BLOOD CELL COUNT(AUTO) 3.84 MIL/uL (4.0-5.2); WHITE BLOOD COUNT (AUTO) 6.7 K/uL (4.3-11.0)
[2019-04-22] MEDS ORDERED: HYDROCODONE/APAP 10/325MG 1 EA TABLET PO ONE (13:00)
[2019-04-22] MEDS ORDERED: HYDROCODONE/APAP 10/325MG 1 EA TABLET ONE (13:02)
--- NOTE | 2019-04-22 13:51 | NUR ---
Ordered a meal tray, patient was able to tolerate meals. KENNETH PICC LINE patent and flushes well. Patient discharged to home in stable condition. Written and verbal after care instructions given. Patient verbalizes understanding of instruction. at bedside.
[2019-04-22 13:53] VITALS: BP 130/80
--- NOTE | 2019-04-22 14:12 | NUR ---
PATIENT REQUESTED FOR A PRESCRIPTION FOR YEAST INFECTION MEDICATION. DR. BRUCE ORDERED A TABLET, BUT PATIENT REFUSED, SHE WANTED PRESCRIPTION INSTEAD. DR. RAMIREZ MADE AWARE. AND RX GIVEN TO PATIENT.
[2019-04-22] MEDS ORDERED: FLUCONAZOLE (100 MG) 100 MG TABLET PO ONE (14:30)
== END 2019-04-22 13:53 | disposition home or self-care (01) ==
LOC: ER 07:17
DX: T80.89XA Other complications following infusion, transfusion and therapeutic injection, initial encounter (principal); F32.9 Major depressive disorder, single episode, unspecified; F41.9 Anxiety disorder, unspecified; F90.9 Attention-deficit hyperactivity disorder, unspecified type; F17.200 Nicotine dependence, unspecified, uncomplicated; D64.9 Anemia, unspecified; Z90.89 Acquired absence of other organs; Z98.890 Other specified postprocedural states; Z79.899 Other long term (current) drug therapy
CPT/HCPCS: 36415; 36569; 71045; 71250; 73200; 80048; 85025; 87070; 87077; 87186; 93931; 96365; 96372; 99285; A6402; J0690; J1170; J7060; 93930-TC

== ENCOUNTER 2019-04-24 05:56 | Emergency (ER) | payer OTHER ==
[~2019-04-24] VITALS: Ht 165.1 cm; Wt 113.4 kg
--- NOTE | 2019-04-24 06:04 | NUR ---
BIB SELF WITH MOTHER FROM HOME. AAOX4. NO SOB NOTED, BREATHING EVEN AND UNLABORED. AMBULATORY. C/O R ARM SWELLING AND PAIN EXTENDING TO R BREAST AND NECK AREA X 3 DAYS. DESCRIBES PAIN CONSTANT THROBBING AND TIGHTNESS. 10/ S/P PICC LINE REMOVAL. NEW PICC LINE REINSERTED ON L ARM WITH ANY PROBLEMS. PT REPORTS THAT SHE IS ON CONTINUOS IV ATB FOR ENDOCARDITIS. TO ER BED 9. AWAITING MD FOR EVAL.
[2019-04-24] MEDS ORDERED: KETOROLAC TROMETHAMINE INJ 60 MG/2 ML VIAL IM ONE (06:34)
--- NOTE | 2019-04-24 06:42 | NUR ---
PT DENIES BEING . WAIVER SIGNED BY PT.
--- NOTE | 2019-04-24 06:47 | NUR ---
PICC ASSESSMENT: 15 INCHES ARM CIRCUMFERENCE ON KENNETH 3 INCHES ABOVE INSERTION SITE. 1CM NOTED FROM INSERTION SITE TO PICC HUB. LAST DRESSING CHANGED DATE ON DRESSIN04/22/19.
[2019-04-24] MEDS ORDERED: IV NS 0.9% 1,000 ML BAG IV ONE (07:00)
[2019-04-24] MEDS ORDERED: KETOROLAC TROMETHAMINE INJ 30 MG/ML VIAL IV ONE (07:00)
--- NOTE | 2019-04-24 07:05 | NUR ---
BLOOD DRAWN FROM PICC LINE. FLUSHED WITH NS, WASTE AND DRAW.
--- NOTE | 2019-04-24 07:13 | NUR ---
PT ENDORSED TO SERENE WEAVER FOR JOYCE
--- NOTE | 2019-04-24 07:14 | NUR ---
REPORT RECEIVED FROM JENSEN CAST FOR JOYCE. PT AWAKE, AOx4, ONGOING 1L NS, 10/10 PS AT JUANITA. HOOKED TO MONITOR. WILL CONTINUE TO MONITOR ACCORDINGLY.
--- NOTE | 2019-04-24 07:16 | NUR ---
PT AMBULATED TO BATHROOM ON HER OWN WITH STEADY GAIT
[2019-04-24 07:17] LABS: BASOPHILS # (AUTO) 0.1 /CMM (0.0-0.2); BASOPHILS % (AUTO) 0.7 % (0.0-2.0); EOSINOPHILS % (AUTO) 1.9 % (0.0-6.0); HEMATOCRIT 33 % (33-45); LYMPHOCYTES # (AUTO) 1.6 /CMM (0.8-4.8); LYMPHOCYTES % (AUTO) 20.1 % (20.0-44.0); MEAN CORPUSCULAR HGB CONC 33 g/dl (31.0-36.0); MEAN CORPUSCULAR VOLUME 88 fL (82-100); MONOCYTES # (AUTO) 0.6 /CMM (0.1-1.30); MONOCYTES % (AUTO) 7.8 % (2.0-12.0); NEUTROPHILS # (AUTO) 5.4 /CMM (1.8-8.9); NEUTROPHILS % (AUTO) 69.5 % (43.0-81.0); PLATELET COUNT (AUTO) 223 /CMM (150-450); RED BLOOD CELL COUNT(AUTO) 3.77 MIL/uL (4.0-5.2); WHITE BLOOD COUNT (AUTO) 7.7 K/uL (4.3-11.0)
[2019-04-24 07:20] LABS: CALCIUM, SERUM 8.7 mg/dL (8.5-10.1); CREATININE 0.7 mg/dL (0.6-1.3); POTASSIUM 4.4 mmol/L (3.5-5.1)
[2019-04-24] MEDS ORDERED: MORPHINE SULFATE INJ 2 MG/ML DISP.SYRIN ONE (07:45)
[2019-04-24] MEDS ORDERED: MORPHINE SULFATE INJ 2 MG/ML DISP.SYRIN IV ONE (08:00)
--- NOTE | 2019-04-24 08:28 | NUR ---
KENNETH PICC LINE PATENT, FLUSHE W 10CC NS, CONNECTED ATB PUMP TO KENNETH PICC LINE.
--- NOTE | 2019-04-24 08:31 | NUR ---
Patient discharged to home in stable condition. Written and verbal after care instructions given. Patient verbalizes understanding of instruction.
[2019-04-24 08:41] VITALS: BP 146/82
== END 2019-04-24 08:41 | disposition home or self-care (01) ==
LOC: ER 05:59
DX: M79.601 Pain in right arm (principal); I38 Endocarditis, valve unspecified; I76 Septic arterial embolism; F32.9 Major depressive disorder, single episode, unspecified; F90.9 Attention-deficit hyperactivity disorder, unspecified type; F41.9 Anxiety disorder, unspecified; F11.90 Opioid use, unspecified, uncomplicated; F60.3 Borderline personality disorder; F17.200 Nicotine dependence, unspecified, uncomplicated; R00.0 Tachycardia, unspecified; Z90.89 Acquired absence of other organs; Z98.890 Other specified postprocedural states
CPT/HCPCS: 36415; 80048; 82550; 85025; 96374; 96375; 99283; J1885; J2270; J7030

== ENCOUNTER 2019-04-26 19:58 | Emergency (ER) | payer OTHER ==
[~2019-04-26] VITALS: Ht 165.1 cm; Wt 113.4 kg
--- NOTE | 2019-04-26 20:10 | NUR ---
PT BIBSELF C/O R UPPER EXTREMITY PAIN S/P INFILTRATED PICC LINE X3 DAYS AGO. NOTED LIMITED ROM, R UPPER EXT WARM TO TOUCH. DENIES FEVER. PT AAOX4, APPEARS UNCOMFORTABLE. RESPIRATIONS EVEN AND UNLABORED. SKIN INTACT. NOTED PICC LINE LEFT UPPER EXTREMITY. WILL CONTINUE TO MONITOR.
[2019-04-26] MEDS ORDERED: oxyCODONE/APAP (5/325 MG) 1 UDTAB TABLET ONE (20:27)
[2019-04-26] MEDS ORDERED: oxyCODONE/APAP (5/325 MG) 1 UDTAB TABLET PO ONE (20:30)
--- NOTE | 2019-04-26 20:59 | NUR ---
ULTRASOUND AT BEDSIDE
[2019-04-26] MEDS ORDERED: HYDROMORPHONE INJ 2 MG/ML DISP.SYRIN ONE (21:17)
[2019-04-26 21:20] LABS: BASOPHILS # (AUTO) 0.1 /CMM (0.0-0.2); BASOPHILS % (AUTO) 0.8 % (0.0-2.0); EOSINOPHILS % (AUTO) 1.3 % (0.0-6.0); HEMATOCRIT 33 % (33-45); HEMOGLOBIN 11.1 g/dL (11.5-14.8); LYMPHOCYTES # (AUTO) 2.8 /CMM (0.8-4.8); LYMPHOCYTES % (AUTO) 28.5 % (20.0-44.0); MEAN CORPUSCULAR HGB CONC 34 g/dl (31.0-36.0); MEAN CORPUSCULAR VOLUME 88 fL (82-100); MONOCYTES # (AUTO) 0.9 /CMM (0.1-1.30); MONOCYTES % (AUTO) 8.7 % (2.0-12.0); NEUTROPHILS # (AUTO) 6.1 /CMM (1.8-8.9); NEUTROPHILS % (AUTO) 60.7 % (43.0-81.0); PLATELET COUNT (AUTO) 284 /CMM (150-450); RED BLOOD CELL COUNT(AUTO) 3.77 MIL/uL (4.0-5.2)
[2019-04-26 21:30] LABS: CALCIUM, SERUM 8.4 mg/dL (8.5-10.1); CARBON DIOXIDE 27 mmol/L (21-32); CHLORIDE 102 mmol/L (98-107); CREATININE 0.7 mg/dL (0.6-1.3); GLUCOSE 100 mg/dL (74-106); SODIUM SERUM 137 mmol/L (136-145); UREA NITROGEN, BLOOD 11 mg/dL (7-18)
[2019-04-26] MEDS ORDERED: HEPARIN SODIUM, PORCINE 5000 UNITS/1 ML VIAL IV ONE (21:30)
[2019-04-26] MEDS ORDERED: IV NS 0.9% 500 ML BAG IV ONE (21:30)
[2019-04-26] MEDS ORDERED: HEPARIN INFUSION/D5W 500 ML IV ONE ×2 (21:30→21:46)
[2019-04-26] MEDS ORDERED: HYDROMORPHONE INJ 2 MG/ML DISP.SYRIN IV ONE (21:30)
[2019-04-26] MEDS ORDERED: HEPARIN SODIUM, PORCINE 5000 UNITS/1 ML VIAL ONE (21:46)
[2019-04-26] MEDS ORDERED: ALPRAZOLAM 0.5 MG TABLET ONE (21:53)
--- NOTE | 2019-04-26 21:55 | NUR ---
ADDENDUM: Intravenous End Time Documentation: Heparin Infusion (25,000/D5W 500 ml) start time: 2154 running at 1800 units/ hour or 36 ml/hour rate End time: infusing while being transferred to [facility] (04/27/2019) Site: PICC LFA; PORT # 1
[2019-04-26] MEDS ORDERED: ALPRAZOLAM 0.5 MG TABLET PO ONE (22:00)
--- NOTE | 2019-04-26 22:44 | NUR ---
AWAITING NURSING SUP WITH TRANSFER INFO.
--- NOTE | 2019-04-26 23:55 | NUR ---
Linsey ngyuễn in ED - 05/07/19 at 0952 by LUI ADDENDUM: Intravenous End Time Documentation: Heparin Infusion (25,000/D5W 500 ml) start time: 2154 running at 1800 units/ hour or 36 ml/hour rate End time: infusing while being transferred to [facility] (04/27/2019) Site: PICC LFA; PORT # 1
[2019-04-27] MEDS ORDERED: HYDROMORPHONE INJ 2 MG/ML DISP.SYRIN IV PRN
[2019-04-27] MEDS ORDERED: HEPARIN INFUSION/D5W 500 ML IV PRN
[2019-04-27] MEDS ORDERED: MAGNESIUM HYDROXIDE 30 ML UDC PO PRN
[2019-04-27] MEDS ORDERED: MAG HYDROX/AL HYDROX/SIMETH 30 ML UDC PO PRN
[2019-04-27] MEDS ORDERED: HYDROCODONE/APAP 10/325MG 1 EA TABLET PO PRN
[2019-04-27] MEDS ORDERED: ACETAMINOPHEN 325 MG TABLET PO PRN
[2019-04-27] MEDS ORDERED: HYDROCODONE/APAP 5/325MG 1 EACH TABLET PO PRN
[2019-04-27] MEDS ORDERED: Z GUARD REMEDY 2 OZ OINT TP PRN
[2019-04-27] MEDS ORDERED: ONDANSETRON HCL/PF 4 MG/2 ML VIAL IVP PRN
--- NOTE | 2019-04-27 | NUR ---
FOLLOWED UP WITH NURSING SUP. NO TRANSFER INFO AVAILABLE AT THIS TIME.
[2019-04-27] MEDS ORDERED: HYDROMORPHONE INJ 2 MG/ML DISP.SYRIN ONE ×2 (00:09→04:24)
[2019-04-27] MEDS ORDERED: HYDROMORPHONE INJ 0.5 MG/0.5 ML SYRINGE IV ONE ×2 (00:30→04:00)
--- NOTE | 2019-04-27 04:21 | NUR ---
[facility] ETA [phone]
--- NOTE | 2019-04-27 04:51 | NUR ---
NUMBER FOR REPORT [phone]
[2019-04-27] MEDS ORDERED: [UNRECOGNIZED DRUG - OTHER] IV SCH (05:00)
[2019-04-27] MEDS ORDERED: CEFAZOLIN IV SCH (05:00)
[2019-04-27] MEDS ORDERED: DEXTROSE IV SCH (05:00)
--- NOTE | 2019-04-27 05:13 | NUR ---
GAVE REPORT TO JINNY CAST FROM [facility] FOR JOYCE
[2019-04-27 05:52] VITALS: BP 139/79
--- NOTE | 2019-04-27 07:05 | NUR ---
VERBAL AUTHORIZATION GIVEN BY PATRIC OSMAN FOR NURSE HOWIE DALY TO TRANSPORT PATIENT TO [facility] VIA [facility]BULANCE.
[2019-04-27] MEDS ORDERED: ALPRAZOLAM 0.5 MG TABLET PO SCH (09:00)
== END 2019-04-27 07:17 | disposition short-term general hospital (02) ==
LOC: ER 20:01
DX: I82.621 Acute embolism and thrombosis of deep veins of right upper extremity (principal); F32.9 Major depressive disorder, single episode, unspecified; F41.9 Anxiety disorder, unspecified; D64.9 Anemia, unspecified; F17.200 Nicotine dependence, unspecified, uncomplicated; F90.9 Attention-deficit hyperactivity disorder, unspecified type; Z90.89 Acquired absence of other organs; Z98.890 Other specified postprocedural states; Z79.899 Other long term (current) drug therapy
CPT/HCPCS: 36415; 71045; 80048; 84484; 85025; 85730; 87081; 93005 ×2; 93971; 96365; 96366; 96375; 96376; 99285; J1170 ×3; J1644 ×2; J7040

== ENCOUNTER 2021-05-19 23:48 | Emergency (ER) | payer MEDICAID, OTHER ==
[~2021-05-19] VITALS: Ht 162.6 cm; Wt 149.2 kg
--- NOTE | 2021-05-19 23:50 | NUR ---
Patient came to the ER bed 9 bib c/o bilateral lower edema w/ pain. Patient is Alert and oriented X4. Breathinge venly and unlabored on room air. connected to the case monitor.
--- NOTE | 2021-05-20 00:27 | NUR ---
EKG DONE BY EMT
--- NOTE | 2021-05-20 00:34 | NUR ---
HAZARDOUS WASTE REMOVER AT BEDSIDE FOR BLOOD DRAW
--- NOTE | 2021-05-20 00:39 | NUR ---
PATIENT REFUSES ANY OTHER METHOD OF IV PLACEMENT OTHER THAN AN ULTRASOUND-GUIDED IV. NOTIFIED.
[2021-05-20 00:50] LABS: BASOPHILS # (AUTO) 0.1 K/uL (0.0-0.2); BASOPHILS % (AUTO) 0.8 % (0.0-2.0); EOSINOPHILS % (AUTO) 1.6 % (0.0-6.0); HEMATOCRIT 36 % (33-45); HEMOGLOBIN 11.9 g/dL (11.5-14.8); LYMPHOCYTES # (AUTO) 2.4 K/uL (0.8-4.8); LYMPHOCYTES % (AUTO) 28.5 % (20.0-44.0); MEAN CORPUSCULAR HGB CONC 33 g/dl (31.0-36.0); MEAN CORPUSCULAR VOLUME 91 fL (82-100); MONOCYTES # (AUTO) 0.5 K/uL (0.1-1.30); MONOCYTES % (AUTO) 6.3 % (2.0-12.0); NEUTROPHILS # (AUTO) 5.3 K/uL (1.8-8.9); NEUTROPHILS % (AUTO) 62.8 % (43.0-81.0); PLATELET COUNT (AUTO) 271 K/uL (150-450); RED BLOOD CELL COUNT(AUTO) 3.96 MIL/uL (4.0-5.2); WHITE BLOOD COUNT (AUTO) 8.5 K/uL (4.3-11.0)
[2021-05-20 01:12] LABS: ALANINE AMINOTRANSFERASE 25 U/L (12-78); ALBUMIN 3.2 g/dL (3.4-5.0); ALKALINE PHOSPHATASE 99 U/L (46-116); ASPARTATE AMINOTRANSFERASE 20 U/L (15-37); BILIRUBIN,DIRECT 0.1 mg/dL (0.0-0.2); BILIRUBIN,TOTAL 0.5 mg/dL (0.2-1.0); CALCIUM, SERUM 8.4 mg/dL (8.5-10.1); CARBON DIOXIDE 29 mmol/L (21-32); CHLORIDE 104 mmol/L (98-107); CREATININE 0.8 mg/dL (0.6-1.3); GLUCOSE 95 mg/dL (74-106); POTASSIUM 3.6 mmol/L (3.5-5.1); SODIUM SERUM 141 mmol/L (136-145); TOTAL PROTEIN, SERUM 6.9 g/dL (6.4-8.2); UREA NITROGEN, BLOOD 12 mg/dL (7-18)
[2021-05-20] MEDS ORDERED: ONDANSETRON HCL/PF 4 MG/2 ML VIAL ONE ×2 (01:13→01:36)
[2021-05-20] MEDS ORDERED: MORPHINE SULFATE INJ 4 MG/ML DISP.SYRIN ONE ×2 (01:14→01:36)
[2021-05-20] MEDS ORDERED: MORPHINE SULFATE INJ 2 MG/ML DISP.SYRIN IV ONE (01:30)
[2021-05-20] MEDS ORDERED: ONDANSETRON HCL/PF 4 MG/2 ML VIAL IV ONE (01:30)
[2021-05-20] MEDS ORDERED: FUROSEMIDE 40 MG/4 ML VIAL ONE (01:44)
--- NOTE | 2021-05-20 01:57 | NUR ---
IV removed. Catheter intact and site benign. Pressure and 4x4 applied to site. No bleeding noted.
--- NOTE | 2021-05-20 01:58 | NUR ---
Patient discharged to home in stable condition. Written and verbal after care instructions given. Patient verbalizes understanding of instruction.
[2021-05-20] MEDS ORDERED: FUROSEMIDE 40 MG/4 ML VIAL IV ONE (02:00)
[2021-05-20 02:33] VITALS: BP 123/79
== END 2021-05-20 01:59 | disposition home or self-care (01) ==
LOC: ER 23:51
DX: R60.0 Localized edema (principal); I50.9 Heart failure, unspecified; F32.9 Major depressive disorder, single episode, unspecified; F41.9 Anxiety disorder, unspecified; F90.9 Attention-deficit hyperactivity disorder, unspecified type; Z98.890 Other specified postprocedural states
CPT/HCPCS: 36415; 71045; 80048; 80076; 83605; 83880; 84484; 85025; 85730; 87040 ×2; 93005; 96374; 96375; 99285; J1940; J2270; J2405

== ENCOUNTER 2022-07-14 23:50 | Emergency (ER) | payer MEDICAID ==
[~2022-07-14] VITALS: Ht 165.1 cm; Wt 118.4 kg
[2022-07-15] MEDS ORDERED: ACYCLOVIR 200 MG CAPSULE PO ONE
[2022-07-15] MEDS ORDERED: HYDROCODONE/APAP 5/325MG TABLET PO ONE
[2022-07-15] MEDS ORDERED: AMOXICILLIN TRIHYDRATE 500 MG CAPSULE PO ONE
[2022-07-15] MEDS ORDERED: HYDROCODONE/APAP 5/325MG TABLET ONE (00:07)
[2022-07-15] MEDS ORDERED: OXYC-128 PO (00:07)
[2022-07-15] MEDS ORDERED: ACYC-108 PO (00:07)
[2022-07-15] MEDS ORDERED: AMOXICILLIN TRIHYDRATE 250 MG CAPSULE ONE (00:07)
[2022-07-15] MEDS ORDERED: PENI500T PO (00:07)
[2022-07-15] MEDS ORDERED: NABU-141 PO (00:07)
[2022-07-15] MEDS ORDERED: ACYCLOVIR 200 MG CAPSULE ONE (00:08)
[2022-07-15 00:17] VITALS: BP 144/80
[2022-07-15] MEDS ORDERED: FLUC150T PO (00:34)
== END 2022-07-15 | disposition home or self-care (01) ==
LOC: ER 07-15 00:01
DX: B02.9 Zoster without complications (principal); K04.7 Periapical abscess without sinus; F32.A Depression, unspecified; F90.9 Attention-deficit hyperactivity disorder, unspecified type; F41.9 Anxiety disorder, unspecified; Z98.890 Other specified postprocedural states; Z79.899 Other long term (current) drug therapy
CPT/HCPCS: 99284; A6403